=== PATIENT | male | born 2000 | race Caucasian/White ===

== ENCOUNTER 2018-10-14 06:19 | Day surgery (SDC) | payer OTHER ==
[~2018-10-14 06:19] MED LIST: Buffered Lidocaine 1% SYRIN* 1 ML/SYRINGE INTRADERM ONE; Lactated Ringers 1000 ML Bag* 1,000 ML IV SCH
[2018-10-14] MEDS ORDERED: ceFAZolin 2 GM PREMIX in ORs 2 GM/50 ML BAG IVPB ONE (06:27)
[2018-10-14] MEDS ORDERED: Propofol* 10 MG/ML 20 ML BTL ONE (06:58)
[2018-10-14] MEDS ORDERED: fentaNYL* 50 MCG/ML 2 ML VIAL (100 MCG VIAL) ONE (06:59)
[2018-10-14] MEDS ORDERED: Midazolam* 1 MG/ML 2 ML VIAL (2 MG) ONE (06:59)
[2018-10-14] MEDS ORDERED: Lidocaine 2% PF * 5 ML VIAL ONE (07:02)
[2018-10-14] MEDS ORDERED: Bupivacaine 0.25% SDV* 30 ML ONE (07:13)
[2018-10-14] MEDS ORDERED: Dexamethasone IV* 4 MG/ML 1 ML (4 MG) ONE (07:57)
[2018-10-14] MEDS ORDERED: Acetaminophen TAB* 325 MG PO PRN (08:03)
[2018-10-14] MEDS ORDERED: Naloxone* 0.4 MG/ML 1 ML VIAL IV PRN (08:03)
[2018-10-14] MEDS ORDERED: oxyCODONE TAB* 5 MG TAB PO PRN (08:03)
[2018-10-14] MEDS ORDERED: diPHENhydraMINE IV* 50 MG/ML 1 ml VIAL (BENADRYL) IV PRN (08:03)
[2018-10-14] MEDS ORDERED: fentaNYL* 50 MCG/ML 2 ML VIAL (100 MCG VIAL) IV PRN (08:03)
[2018-10-14] MEDS ORDERED: Metoclopramide IV* 5 MG/ML 2 ML VIAL ONE (09:18)
[2018-10-14] MEDS ORDERED: Ketorolac INJ* 30 MG/ML 1 ML VIAL ONE (09:18)
[2018-10-14] MEDS ORDERED: Ondansetron INJ* 2 MG/ML VIAL ONE (09:18)
[2018-10-14 10:17] VITALS: BP 115/58
[2018-10-14] MEDS ORDERED: HYDROcodone/ACETAMIN 5-325 MG* 1 TAB ONE (10:18)
--- NOTE | 2018-10-14 14:17 | OP ---
OPERATIVE REPORT: DATE OF OPERATION: 10/14/18 - ROSA DATE OF : 89 SURGEON: Luca Heard MD INJECTOR ASSEMBLER: CALLUM Rocha An certified surgical tech/first assistant was needed for the procedure to aid in positioning of the arm and creating the arthroscopic portals and holding instruments during the arthroscopic portion of the procedure. ANESTHESIOLOGIST: Dr. Patterson. ANESTHESIA: General. PRE-OP DIAGNOSIS: Right wrist partial scapholunate interosseous ligament injury. 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 OPERATIVE PROCEDURE: Right wrist arthroscopic debridement with thermal shrinkage and pinning of the scapholunate joint and scaphocapitate joints in the reduced position. 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 He had the wrist injury, it is in a more chronic phase. The wrist pain has persisted and so we had talked about his treatment options on his MRI scan. It had looked like probably he had a partial tear of the ligament and I told him that I would recommend in a younger person performing a debridement with thermal shrinkage followed by a period of prolonged immobilization to see if we could tighten up the wrist and get rid of this pain. He understands risks associated with surgery including the risk of AVN of the scaphoid and need for further surgery in the future if it is simply too unstable. I told him that I would put pins across it if there is a little bit more instability, and if there was not, then I would simply perform the thermal shrinkage. ESTIMATED BLOOD LOSS: 2 mL. COMPLICATIONS: None. FINDINGS: See above and below. DESCRIPTION OF PROCEDURE: Choco was seen in the preoperative holding area. The correct site, side, and procedure were identified. He came back to the operating room where anesthesia was induced. The arm was prepped and draped and then placed in the Acumed traction tower. A time-out was performed. The arm was exsanguinated with the Esmarch and the tourniquet was inflated to 250 mmHg. I then developed a 3-4 portal in a standard fashion by incising the skin with the tip of the #11 blade. A mosquito was then used to penetrate the joint and then the blunt trocar was used to cannulate the joint and the camera was then introduced. The radial styloid, the scaphoid and facet and proximal folds of the scaphoid all looked healthy. The volar radiocarpal ligaments all looked healthy. As I came more ulnar, a large stepoff was noted between the end of the scaphoid and the lunate and a full thickness tear was easily identifiable with at least a camera's width stepoff and the scaphoid was sitting more distal as it had been pulled with the traction, but the lunate was still sitting articulating with the lunate facet with very little traction having made its way through the lunate. The frayed edges of the ligament were seen and torn off of the scaphoid. I went ahead and created a 4-5 and 6R portals. I introduced the shaver through the 4-5 portal and I placed some drainage through the 6R portal. I performed a dorsal synovectomy and debridement of the torn scapholunate interosseous ligament. I then introduced the camera into the 6R portal. There was a little bit of tearing of the central portion of the TFCC as well. This was just debrided back to a stable edge. I then created radial and ulnar mid carpal portals in a standard fashion. The camera was introduced into the radial mid carpal portal. The probe was introduced through the ulnar mid carpal portal. There was Juan C 3 instability immediately noted. I then adjusted my camera and was able to pretty much get the camera in between the scaphoid and the lunate. Given the essentially Juan C 4 instability, I could not easily drive through, but I could definitely get the camera wedged between the scaphoid and the lunate and a picture was taken there as well. I did go ahead and take my radiofrequency ablator and cauterized the remnant of the palmar and dorsal scapholunate interosseous ligament just gently. I used the shaver to debride the loose frayed edges as well. I did inspect the lunotriquetral joint as well. He did have just a very slight type 2 lunate with lunotriquetral instability noted as well. I then came back to the proximal row portals. I placed my camera in the 3-4 portal. I introduced the shaver through the 4-5 portal and I used the shaver on both oscillating and the burst setting to just roughen up the edge of the scaphoid where the scapholunate interosseous ligament would normally attach. I then let off all the traction and the scaphoid fell back into articulation with the scaphoid facet. It was sitting just a little dorsally translated with respect to the lunate and a little flexed and pronated. I had my certified surgical tech/first assistant hold the wrist in gentle flexion and had him hold the camera while I when ahead and reduced the scaphoid by putting pressure on the proximal fold of the scaphoid, bringing it out of dorsal translation as well as out of the flexion. I then took a 0.062 K-wire and passed it across the scaphoid down into the lunate. This went in very cleanly. After that pin was placed, the scaphoid stayed in the appropriate position. I went ahead and kept my thumb there while I placed a second pin from the scaphoid up into the capitate. Again, this went in very cleanly. Both pins went in very cleanly with just a single pass. I had done this under mini C-arm fluoroscopy as well. Final fluoroscopic images were taken and were saved. The scapholunate angle had been restored. The lunate was in good alignment with the capitate and out of all dorsiflexion. Arthroscopically, the 2 bones were nicely articulating. We irrigated out the portal sites. They were closed with Steri-Strips. The pins were clipped just below the skin and the pin sites were closed with Steri-Strips as well. 0.25% Marcaine was infiltrated around the area. The area was well padded with 4x4's and sterile Webril and then a sugar tong splint was applied. Tourniquet was deflated during the splint placement and the hand pinked up immediately. He was taken to the recovery room in stable condition. [id number]/[facility] #: [id number] LORE
== END 2018-10-14 10:36 | disposition home or self-care (01) ==
LOC: OREAST 06:19
PROVIDERS: ATTEND Orthopaedic Surgery Hand Surgery
DX: S63.511A Sprain of carpal joint of right wrist, initial encounter (principal); M25.331 Other instability, right wrist; X50.0XXA Overexertion from strenuous movement or load, initial encounter; Y93.79 Activity, other specified sports and athletics; Y92.9 Unspecified place or not applicable
CPT/HCPCS: 76000; 88304; C1776; J0690; J1100; J1885; J2250; J2405; J2704; J2765; J3010; J3490